=== PATIENT | male | born 1965 | race Caucasian/White ===

== ENCOUNTER 2017-10-24 11:35 | Observation (INO) ==
--- NOTE | 2017-10-24 12:42 | ED ---
HPI General Chief Complaint: Chest Pain Stated Complaint: High bp Time Seen by Provider: 10/24/17 12:00 Source: patient Mode of arrival: ambulatory Limitations: no limitations History of Present Illness HPI narrative: Patient is a 51-year-old male presenting to emerge from for evaluation of chest pain. Patient states that he was in physical therapy at the [facility] today and had a 3 second episode of left anterior chest wall pain. Patient states it was sharp and pressure-like in nature. He was having his blood pressure taken when the pain started. Patient states he had the same pain yesterday, also occurred at rest pain was more intense at that time and lasted for approximately 10 seconds. No alleviating factors, no exacerbating factors, symptom onset was sudden, symptoms resolve on their own. Patient denies any nausea, vomiting, diaphoresis, shortness of breath, headache. Past medical history is significant for hypertension, type 2 diabetes, neuropathy, stage III chronic kidney disease, coronary artery disease with stent placement 2 years ago, glaucoma, cataracts, depression/anxiety, vertigo. Patient states he cannot have IV contrast due to his kidney disease but denies any allergic reaction to iodine or shellfish. Patient is currently pain-free. MD complaint: chest pain Complete Quality Measures for STEMI Alert Patients STEMI Alert: No Onset (ago): day(s) Duration: intermittent and now resolved Onset: during rest Pain location: left chest Severity: moderate Severity scale (1-10): 4 Quality: tightness and sharp Pain radiation: none Relieving factors: nothing Exacerbating factors: nothing Treatments prior to arrival chest pain: none Related Data Home Medications Medication Instructions Recorded Confirmed Unable to Obtain Home Meds 10/24/17 10/24/17 Allergies Allergy/AdvReac Type Severity Reaction Status Date / Time No Known Allergies Allergy Verified 10/24/17 12:27 Review of Systems ROS: all other systems reviewed are negative PMFSH History History Provided By: Patient Medical History Medical History Myocardial infarction (Acute) Anxiety (Chronic) CAD (coronary artery disease) (Chronic) CKD (chronic kidney disease) stage 3, GFR 30-59 ml/min (Chronic) Cataract (Chronic) Chronic neck and back pain (Chronic) Depression (Chronic) Glaucoma (Chronic) Hypertension (Chronic) Neuropathy (Chronic) Type 2 diabetes mellitus (Chronic) Vertigo (Chronic) Surgical History Surgical History History of coronary artery stent placement (Acute) Stented coronary artery (Acute) Social History Social History Substance History: No History of Abuse Second Hand Smoke Exposure: No Smoking Status: Unknown if ever smoked How Often Do You Have a Drink Containing Alcohol: Never Recent Travel in [facility] within the Last 8 Weeks: No Recent Out of Country Travel within the Last 8 Weeks: No Exam Narrative Exam Narrative: GENERAL: Overweight, well-developed, alert male. Presenting in no acute distress. SKIN: Focused skin assessment warm/dry. HEAD: Atraumatic. Normocephalic. EYES: Pupils equal and round. No scleral icterus. No injection or drainage. ENT: No nasal bleeding or discharge. Mucous membranes pink and moist. NECK: Trachea midline. No JVD. CARDIOVASCULAR: Regular rate and rhythm. No murmur appreciated. RESPIRATORY: No accessory muscle use. Clear to auscultation. Breath sounds equal bilaterally. GASTROINTESTINAL: Abdomen soft, non-tender, nondistended. Hepatic and splenic margins not palpable. MUSCULOSKELETAL: No obvious deformities. No clubbing. No cyanosis. No edema. NEUROLOGICAL: Awake and alert. No obvious cranial nerve deficits. Motor grossly within normal limits. Normal speech. PSYCHIATRIC: Appropriate mood and affect; insight and judgment normal. Course Initial Documented Vital Signs Temperature 97.7 F 10/24/17 11:51 Pulse Rate 88 10/24/17 11:51 Respiratory Rate 18 10/24/17 11:51 Blood Pressure 195/88 H 10/24/17 11:51 Pulse Oximetry 97 10/24/17 11:51 Last Documented Vital Signs Temperature 97.7 F 10/24/17 11:51 Pulse Rate 74 10/24/17 13:45 Respiratory Rate 15 10/24/17 13:45 Blood Pressure 170/96 H 10/24/17 13:45 Pulse Oximetry 94 L 10/24/17 13:45 Medical Decision Making MAYRA Attestation MAYRA supervised visit: Yes Attestation: I, Dr. Dailey, have reviewed the advance practice practitioner's documentation and am in agreement, met with the patient face to face, made the diagnosis, and the medical decision making was done by me. *My assessment and Findings: Patient is a 51-year-old male with history of coronary artery disease, presents the emergency room for evaluation of chest pain. Patient reports that he had 2 episodes of chest pain today as well as yesterday, reports that symptoms only lasted for a few seconds and resolved on its own. Reports that today when he had his episode of chest pain, he was in rehab at the [facility] and was sent to the emergency room for evaluation. Patient reports that chest pain following a dull ache, no shortness of breath or diaphoresis with the symptoms. Patient is currently chest pain-free, first set of troponin is negative. Patient was given aspirin and admitted to chest pain unit. MDM Narrative Medical decision making narrative: Patient is a 51-year-old male presenting for evaluation of chest pain. Patient is hypertensive on arrival, labs and imaging ordered and pending. Patient is currently pain-free. Aspirin nitroglycerin ordered. Labs reviewed, BUN and creatinine elevated 16/04.04, patient has reported history of chronic kidney disease, stage III. Cardiac enzymes are negative 1 set. Blood pressure trended down after administration of Nitropaste patient's chest wall. Patient was also seen and evaluated by my attending physician. Patient will be placed in the chest pain center for further evaluation. Patient is currently resting comfortably, he is pain-free. Medical Screen Exam Complete: Yes Emergency Medical Condition: Yes Differential Diagnosis Differential Diagnosis: ACS versus [place] versus muscular skeletal pain versus anxiety versus metabolic abnormality versus arrhythmia versus other Medical Records Medical records reviewed: Yes I reviewed the patient's medical records. Lab Data Result diagrams: 10/24/17 13:00 10/24/17 13:00 Lab Results 10/24/17 10/24/17 10/24/17 Range/Units 13:00 13:00 13:00 WBC 7.1 (4.0-11.0) th/mm3 RBC 4.09 L (4.50-5.90) mil/mm3 Hgb 12.4 L (13.0-17.0) gm/dL Hct 37.8 L (39.0-51.0) % MCV 92.5 (80.0-100.0) fL MCH 30.3 (27.0-34.0) pg MCHC 32.8 (32.0-36.0) % RDW 14.3 (11.6-17.2) % Plt Count 195 (150-450) th/mm3 MPV 7.9 (7.0-11.0) fL Neut % (Auto) 61.3 (16.0-70.0) % Lymph % (Auto) 26.2 (9.0-44.0) % [place] % (Auto) 10.6 H (0.0-8.0) % Eos % (Auto) 1.6 (0.0-4.0) % Baso % (Auto) 0.3 (0.0-2.0) % Neut # (Auto) 4.3 (1.8-7.7) th/mm3 Lymph # (Auto) 1.9 (1.0-4.8) th/mm3 [place] # (Auto) 0.8 (0.0-0.9) th/mm3 Eos # (Auto) 0.1 (0.0-0.4) th/mm3 Baso # (Auto) 0.0 (0.0-0.2) th/mm3 WBC Differential . Differential Comment Auto diff final PT 10.4 (9.8-11.6) sec INR 1.0 Ratio APTT 25.9 (24.3-30.1) sec Sodium (136-145) meq/L Potassium (3.5-5.1) meq/L Chloride (98-107) meq/L Carbon Dioxide (21.0-32.0) meq/L Anion Gap (5-15) meq/L BUN (7-18) mg/dL Creatinine (0.60-1.30) mg/dL Estimated GFR (>89) mL/min Random Glucose (74-106) mg/dL Calcium (8.5-10.1) mg/dL Magnesium (1.5-2.5) mg/dL Total Bilirubin (0.2-1.0) mg/dL AST (15-37) U/L ALT (12-78) U/L Alkaline Phosphatase (45-117) U/L Total Creatine Kinase (39-308) U/L CK-MB (CK-2) (0.5-3.6) ng/mL CK-MB (CK-2) % (0.0-4.0) % Troponin I (0.02-0.05) ng/mL Total Protein (6.4-8.2) g/dL Albumin (3.4-5.0) g/dL Lipase 193 (73-393) U/L Urine Color (Yellw/Straw) Urine Clarity (Clear) Urine pH (5.0-8.5) Ur Specific [place] (1.002-1.035) Urine Protein (Neg-Trace) mg/dL Urine Glucose (UA) (Negative) mg/dL Urine Ketones (Negative) mg/dL Urine Occult Blood (Negative) Urine Nitrate (Negative) Urine Bilirubin (Negative) Urine Urobilinogen (Less than 2) mg/dL Ur Leukocyte Esterase (Negative) Urine RBC (0-3) /hpf Urine WBC (0-5) /hpf Ur Squamous Epith Cells (0-5) /hpf Urine Bacteria (None) /hpf Micro UA Comment Ur Microscopic Review Urine Culture Comments 10/24/17 10/24/17 Range/Units 13:00 13:00 WBC (4.0-11.0) th/mm3 RBC (4.50-5.90) mil/mm3 Hgb (13.0-17.0) gm/dL Hct (39.0-51.0) % MCV (80.0-100.0) fL MCH (27.0-34.0) pg MCHC (32.0-36.0) % RDW (11.6-17.2) % Plt Count (150-450) th/mm3 MPV (7.0-11.0) fL Neut % (Auto) (16.0-70.0) % Lymph % (Auto) (9.0-44.0) % [place] % (Auto) (0.0-8.0) % Eos % (Auto) (0.0-4.0) % Baso % (Auto) (0.0-2.0) % Neut # (Auto) (1.8-7.7) th/mm3 Lymph # (Auto) (1.0-4.8) th/mm3 [place] # (Auto) (0.0-0.9) th/mm3 Eos # (Auto) (0.0-0.4) th/mm3 Baso # (Auto) (0.0-0.2) th/mm3 WBC Differential Differential Comment PT (9.8-11.6) sec INR Ratio APTT (24.3-30.1) sec Sodium 141 (136-145) meq/L Potassium 4.8 (3.5-5.1) meq/L Chloride 104 (98-107) meq/L Carbon Dioxide 32.0 (21.0-32.0) meq/L Anion Gap 5 (5-15) meq/L BUN 28 H (7-18) mg/dL Creatinine 2.04 H (0.60-1.30) mg/dL Estimated GFR 34 L (>89) mL/min Random Glucose 158 H (74-106) mg/dL Calcium 8.4 L (8.5-10.1) mg/dL Magnesium 2.1 (1.5-2.5) mg/dL Total Bilirubin 0.3 (0.2-1.0) mg/dL AST 22 (15-37) U/L ALT 21 (12-78) U/L Alkaline Phosphatase 62 (45-117) U/L Total Creatine Kinase 309 H (39-308) U/L CK-MB (CK-2) 6.7 H (0.5-3.6) ng/mL CK-MB (CK-2) % 2.2 (0.0-4.0) % Troponin I Less than 0.02 L (0.02-0.05) ng/mL Total Protein 7.4 (6.4-8.2) g/dL Albumin 3.2 L (3.4-5.0) g/dL Lipase (73-393) U/L Urine Color Yellow (Yellw/Straw) Urine Clarity Clear (Clear) Urine pH 6.0 (5.0-8.5) Ur Specific [place] 1.015 (1.002-1.035) Urine Protein 30 H (Neg-Trace) mg/dL Urine Glucose (UA) 500 or greater (Negative) mg/dL Urine Ketones Trace H (Negative) mg/dL Urine Occult Blood Moderate H (Negative) Urine Nitrate Negative (Negative) Urine Bilirubin Negative (Negative) Urine Urobilinogen Less than 2 (Less than 2) mg/dL Ur Leukocyte Esterase Negative (Negative) Urine RBC 11 H (0-3) /hpf Urine WBC 1 (0-5) /hpf Ur Squamous Epith Cells <1 (0-5) /hpf Urine Bacteria Rare H (None) /hpf Micro UA Comment Culture not ind Ur Microscopic Review Not Reportable Urine Culture Comments Culture not ind Imaging Data Radiologist's impression: Chest X-Ray 10/24/17 12:29 CONCLUSION: Hypoinflation. No acute cardiopulmonary disease. Discharge Plan Discharge Disposition Patient Disposition: 30 Still Patient Discharge Condition Condition: Stable Discharge Details Diagnosis: Atypical chest pain Physicians Team ED Provider: [place] Dailey ED Midlevel Provider: Angelique Hardy Rxs /Orders / Referrals /Forms Prescriptions: No Action Unable to Obtain Home Meds RF: 0 Discharge Instructions Patient Printed Instructions: Chest Pain (ED) Discharge Interventions Interventions: Vital Signs Last Done: 10/24/17 13:45 Status ED Status: Admitted Observation Patient
[2017-10-24 13:33] LABS: Baso % (Auto) 0.3 % (0.0-2.0); Eos # (Auto) 0.1 th/mm3 (0.0-0.4); Eos % (Auto) 1.6 % (0.0-4.0); Hematocrit 37.8 % (39.0-51.0); Hemoglobin 12.4 gm/dL (13.0-17.0); Lymph # (Auto) 1.9 th/mm3 (1.0-4.8); Lymph % (Auto) 26.2 % (9.0-44.0); Mean Corpuscular HGB Conc 32.8 % (32.0-36.0); Mean Corpuscular Hemoglobin 30.3 pg (27.0-34.0); Mean Corpuscular Volume 92.5 fL (80.0-100.0); Mean Platelet Volume 7.9 fL (7.0-11.0); Mono # (Auto) 0.8 th/mm3 (0.0-0.9); Mono % (Auto) 10.6 % (0.0-8.0); Neut # (Auto) 4.3 th/mm3 (1.8-7.7); Neut % (Auto) 61.3 % (16.0-70.0); Platelet Count 195 th/mm3 (150-450); Red Blood Count 4.09 mil/mm3 (4.50-5.90); Red Cell Distribution Width 14.3 % (11.6-17.2); White Blood Count 7.1 th/mm3 (4.0-11.0)
--- NOTE | 2017-10-24 13:41 | XR ---
EXAM DATE: 10/24/2017 12:45 PM EDT AGE/SEX: 51 years / Male INDICATIONS: High blood pressure, sent by the dr. CLINICAL DATA: This is the patient's initial encounter. Patient reports that signs and symptoms have been present for 1 day and indicates a pain score of 0/10. MEDICAL/SURGICAL HISTORY: . high blood pressure. . coronary artery stent COMPARISON: No prior exams available for comparison. FINDINGS: The cardiac silhouette is enlarged in transverse diameter. The lungs are hypoinflated but clear. No e ffusions are identified. CONCLUSION: Hypoinflation. No acute cardiopulmonary disease. Electronically signed by: Michael Moreno MD 10/24/2017 1:40 PM EDT
[2017-10-24 13:43] LABS: Activated Partial Thrombo Time 25.9 sec (24.3-30.1); Prothrombin Time 10.4 sec (9.8-11.6)
[2017-10-24 13:56] LABS: Alanine Aminotransferase 21 U/L (12-78); Albumin 3.2 g/dL (3.4-5.0); Anion Gap 5 meq/L (5-15); Aspartate Aminotransferase 22 U/L (15-37); Blood Urea Nitrogen 28 mg/dL (7-18); Calcium 8.4 mg/dL (8.5-10.1); Chloride 104 meq/L (98-107); Glomerular Filtration Rate 34 mL/min (>89); Glucose,Random 158 mg/dL (74-106); Magnesium 2.1 mg/dL (1.5-2.5); Potassium 4.8 meq/L (3.5-5.1); Sodium 141 meq/L (136-145)
[2017-10-24 14:00] LABS: Alkaline Phosphatase 62 U/L (45-117); Creatine Kinase 309 U/L (39-308); Total Protein 7.4 g/dL (6.4-8.2)
[2017-10-24 14:12] LABS: Bacteria,Urine Rare /hpf; Bilirubin,Urine Negative (Negative); CKMB Percent 2.2 % (0.0-4.0); Clarity,Urine Clear (Clear); Color,Urine Yellow (Yellw/Straw); Creatine Kinase MB 6.7 ng/mL (0.5-3.6); Glucose,Urine (UA) 500 or Greater mg/dL (Negative); Leukocyte Esterase,Urine Negative (Negative); Nitrite,Urine Negative (Negative); Specific Gravity,Urine 1.015 (1.002-1.035); Squamous Epithelial Cell,Urine <1 /hpf (0-5)
[2017-10-24] MEDS ORDERED: Acetaminophen 500 MG Tablet PO PRN (16:26)
[2017-10-24] MEDS ORDERED: Dextrose 50% in Water 50 ML Vial IV.PUSH PRN (16:42)
--- NOTE | 2017-10-24 16:54 | P.HPCA ---
History of Present Illness Primary Care Physician: Ta Benjamin Chief Complaint: Chest pain History of Present Illness: This is a 51-year-old male with history of CAD with stent 2 2 years ago, hypertension however is taken off the Lopressor for about a year ago was secondary to hypotension, diabetes, neuropathy, vertigo, chronic kidney disease that presents to ED after being evaluated at the [facility] with complaint of chest discomfort he states he initially went to physical therapy for vertigo and while they are checking his blood pressure discovered that it was high. Was asked if he was having chest discomfort. Patient had then stated that he had an episode of chest discomfort yesterday while being sedentary lasting about 10 seconds and had another one while he is at the [facility] clinic lasting about 3 seconds. Describes as a left-sided sharp discomfort. States the discomfort yesterday was actually tender to touch but not today. Denies being short of breath, nauseous, diaphoretic. States is not similar to symptoms that led to his stent 2 years ago. States at that point his main issue was being extremely short of breath which was not the case today. Currently denies discomfort. Denies recent illness. Denies fevers or chills. Asking further about his blood pressure. Apparently about a year ago he had fallen after becoming dizzy and was found to be hypotensive. He was taken off Lopressor and added MIODRINE. With further discussion, patient really does not drink much water. His symptoms likely related to dehydration. States he still really does not drink that much. He has been having a salty diet as of lately. Patient is a lifetime non-smoker. Denies family history of CAD. - Diagnosis (1) Chest pain (2) History of coronary artery disease (3) History of heart artery stent (4) Hypertension (5) Hyperlipidemia (6) Diabetes (7) Chronic kidney disease (8) Neuropathy Review of Systems General: Patient denies fevers, chills, and recent travel. HEENT: Patient denies headache, sore throat, difficulty swallowing. Cardiovascular: Has the chest discomfort as mentioned above. Denies sensation of heart beating rapidly or irregularly. No syncope. Denies diaphoresis. Respiratory: Denies shortness of breath or inspirational chest discomfort. Denies coughing wheezing or hemoptysis. GI: Patient denies nausea, vomiting, diarrhea, abdominal pain, bloody stools. Musculoskeletal: Patient denies joint pain or edema. Denies calf pain or edema. Neurovascular: Patient denies numbness, tingling, weakness in extremities. Denies headache. Endocrine: Denies polyuria and polydipsia. Hematologic: Denies easy bruising. Skin: Denies rash or itching. PMFSH - History History Provided By: Patient - Medical History Medical History: Medical History (Last Updated 10/24/17 @ 13:38 by Blanca Lombardi RN) Myocardial infarction Anxiety CAD (coronary artery disease) CKD (chronic kidney disease) stage 3, GFR 30-59 ml/min Cataract Chronic neck and back pain Depression Glaucoma Hypertension Neuropathy Type 2 diabetes mellitus Vertigo - Surgical History Surgical History: Surgical History (Last Updated 10/24/17 @ 13:38 by Blanca Lombardi RN) History of coronary artery stent placement Stented coronary artery - Tobacco History Second Hand Smoke Exposure: No Tobacco Use In Past 30 Days: No Smoking Status: Unknown if ever smoked - Alcohol History How Often Do You Have a Drink Containing Alcohol: Never - Substance Use History Substance History: No History of Abuse - Travel History Recent Travel in the [place] Within the Last 8 Weeks: No Recent Travel Out of the Country Within the Last 8 Weeks: No - Immunization History Tetanus Immunization: <5 Years Hx Influenza Vaccine This Season: No Medications and Allergies Active Medications: Active Medications Acetaminophen (Tylenol) 500 mg PO Q6H PRN PRN Reason: pain scale 1-5 Hydrocodone Bitart/Acetaminophen ([place] 7.5/325) 1 tab PO Q6H PRN PRN Reason: pain scale 6-10 Albuterol (Duoneb Neb (Prn)) 1 ampul NEB Q4HR NEB PRN PRN Reason: SHORTNESS OF BREATH/WHEEZING Amlodipine Besylate (Norvasc) 2.5 mg PO DAILY [facility] Atorvastatin Calcium (Lipitor) 10 mg PO DAILY [facility] Clonidine HCl (Catapres) 0.1 mg PO Q6H PRN PRN Reason: SBP >165 OR DBP > 110 Clopidogrel Bisulfate (Plavix) 75 mg PO DAILY [facility] Dextrose (D50w Vial) 50 ml IV.PUSH UNSCH PRN PRN Reason: PER HYPOGLYCEMIA PROTOCOL Divalproex Sodium (Depakote Er) 1,000 mg PO DAILY [facility] Escitalopram Oxalate (Lexapro) 10 mg PO DAILY [facility] Finasteride (Proscar) 5 mg PO DAILY [facility] Glucagon (Glucagon Inj) 1 mg OTHER UNSCH PRN PRN Reason: for Hypoglycemia Protocol Insulin Human Regular (Novolin R Correctional Sugar Inj) 0 units SQ ACHS [facility]; Protocol Non-Formulary Medication (Ferrous Sulfate [Ferrous Sulfate]) 324 mg PO BID [facility] Pantoprazole Sodium (Protonix) 40 mg PO DAILY [facility] Sodium Chloride (Ns Flush) 2 ml IV.FLUSH BID [facility] Sodium Chloride (Ns Flush) 2 ml IV.FLUSH UNSCH PRN PRN Reason: FLUSH AFTER USING IV ACCESS Allergies Allergy/AdvReac Type Severity Reaction Status Date / Time No Known Allergies Allergy Verified 10/24/17 12:27 Home Medications Medication Instructions Recorded Confirmed Type Novolog Flexpen U-100 Insulin SUB-Q 10/24/17 History atorvastatin 10 mg PO DAILY 10/24/17 10/24/17 History carboxymethylcellulose sodium QID 10/24/17 History clopidogrel 75 mg PO DAILY 10/24/17 10/24/17 History divalproex 1,000 mg PO DAILY 10/24/17 10/24/17 History escitalopram oxalate 10 mg PO DAILY 10/24/17 10/24/17 History ferrous sulfate 324 mg PO BID 10/24/17 10/24/17 History finasteride 5 mg PO DAILY 10/24/17 10/24/17 History insulin glargine [Lantus U-100 50 unit SUB-Q DAILY 10/24/17 10/24/17 History Insulin] ketorolac 1 drp OPHTHALMIC (EYE) Q6H 10/24/17 10/24/17 History latanoprost 1 drp OPHTHALMIC (EYE) QPM 10/24/17 10/24/17 History pantoprazole 40 mg PO DAILY 10/24/17 10/24/17 History pantoprazole 40 mg PO DAILY 10/24/17 10/24/17 History sildenafil 25 mg PO DAILY 10/24/17 10/24/17 History Exam Vital signs: Vital Signs 10/24/17 11:51 10/24/17 12:30 10/24/17 12:58 Temperature 97.7 F Pulse Rate 88 80 Respiratory Rate 18 16 Blood Pressure 195/88 H 195/107 H Pulse Oximetry 97 96 97 10/24/17 13:45 Temperature Pulse Rate 74 Respiratory Rate 15 Blood Pressure 170/96 H Pulse Oximetry 94 L Intake & Output 10/23/17 10/24/17 10/24/17 18:59 06:59 18:59 Weight 81.193 kg Narrative: GENERAL: This is a well-nourished, well-developed patient, in no apparent distress. Patient speaks in clear complete sentences. Patient is pleasant. HEENT: Head is atraumatic and normocephalic. Neck is supple without lymphadenopathy and trachea is midline. No JVD or carotid bruits. CARDIOVASCULAR: Regular rate and rhythm without murmurs, gallops, or rubs. RESPIRATORY: Clear to auscultation. Breath sounds equal bilaterally. No wheezes , rales, or rhonchi. Chest wall is nontender. No use of accessory muscles. GASTROINTESTINAL: Abdomen is nontender, nondistended. Abdomen soft. No obvious pulsatile mass or bruit. No CVA tenderness. Strong femoral pulses bilaterally. Normal bowel sounds in all quadrants. MUSCULOSKELETAL: Patient is moving upper and lower extremities freely. No calf tenderness or edema, no Homans sign. Strong pulses in upper and lower extremities. NEUROLOGICAL: Patient is alert and oriented. Cranial nerves 2-12 are grossly intact. No focal deficits and speech is clear. SKIN: No rash and turgor is normal. Results 10/24/17 13:00 10/24/17 13:00 Cardiac Enzymes 10/24/17 Range/Units 13:00 AST 22 (15-37) U/L CK-MB (CK-2) 6.7 H (0.5-3.6) ng/mL Troponin I Less than 0.02 L (0.02-0.05) ng/mL Coagulation 10/24/17 Range/Units 13:00 PT 10.4 (9.8-11.6) sec APTT 25.9 (24.3-30.1) sec CBC 10/24/17 Range/Units 13:00 WBC 7.1 (4.0-11.0) th/mm3 RBC 4.09 L (4.50-5.90) mil/mm3 Hgb 12.4 L (13.0-17.0) gm/dL Hct 37.8 L (39.0-51.0) % Plt Count 195 (150-450) th/mm3 Neut # (Auto) 4.3 (1.8-7.7) th/mm3 Lymph # (Auto) 1.9 (1.0-4.8) th/mm3 Becker # (Auto) 0.8 (0.0-0.9) th/mm3 Eos # (Auto) 0.1 (0.0-0.4) th/mm3 Baso # (Auto) 0.0 (0.0-0.2) th/mm3 Comprehensive Metabolic Panel 10/24/17 Range/Units 13:00 Sodium 141 (136-145) meq/L Potassium 4.8 (3.5-5.1) meq/L Chloride 104 (98-107) meq/L Carbon Dioxide 32.0 (21.0-32.0) meq/L BUN 28 H (7-18) mg/dL Creatinine 2.04 H (0.60-1.30) mg/dL Calcium 8.4 L (8.5-10.1) mg/dL AST 22 (15-37) U/L ALT 21 (12-78) U/L Alkaline Phosphatase 62 (45-117) U/L Total Protein 7.4 (6.4-8.2) g/dL Albumin 3.2 L (3.4-5.0) g/dL Intake and Output 10/24/17 10/24/17 10/24/17 06:59 14:59 22:59 Other: Weight 81.193 kg Patient Weight 10/25/17 06:59 Weight 81.193 kg EKG interpretations - EKG EKG shows: sinus rhythm (Initial EKG is sinus rhythm without significant ST segment depressions or elevations.) Caprini VTE Risk Assessment Caprini VTE Risk Assessment: No/Low Risk (score <= 1) Caprini Risk Assessment Model: Point Value = 1 Point Value = 2 Point Value = 3 Point Value = 5 Age 41-60 Minor surgery BMI > 25 kg/m2 Swollen legs Varicose veins or History of unexplained or recurrent spontaneous Oral contraceptives or hormone replacement Sepsis (< 1 month) Serious lung disease, including pneumonia (< 1 month) Abnormal pulmonary function Acute myocardial infarction Congestive heart failure (< 1 month) History of inflammatory bowel disease Medical patient at bed rest Age 61-74 Arthroscopic surgery Major open surgery (> 45 min) Laparoscopic surgery (> 45 min) Malignancy Confined to bed (> 72 hours) Immobilizing plaster cast Central venous access Age >= 75 History of VTE Family history of VTE Factor V Leiden Prothrombin [id number] Lupus anticoagulant Anticardiolipin antibodies Elevated serum homocysteine Heparin-induced thrombocytopenia Other congenital or acquired thrombophilia Stroke (< 1 month) Elective arthroplasty Hip, pelvis, or leg fracture Acute spinal cord injury (< 1 month) Prophylaxis Regimen: Total Risk Factor Score Risk Level Prophylaxis Regimen 0-1 Low Early ambulation 2 Moderate Order ONE of the following: *Sequential Compression Device (SCD) *Heparin 5000 units SQ BID 3-4 Higher Order ONE of the following medications: *Heparin 5000 units SQ TID *Enoxaparin/Lovenox 40 mg SQ daily (WT < 150 kg, CrCl > 30 mL/min) *Enoxaparin/Lovenox 30 mg SQ daily (WT < 150 kg, CrCl > 10-29 mL/min) *Enoxaparin/Lovenox 30 mg SQ BID (WT < 150 kg, CrCl > 30 mL/min) AND/OR *Sequential Compression Device (SCD) 5 or more Highest Order ONE of the following medications: *Heparin 5000 units SQ TID (Preferred with Epidurals) *Enoxaparin/Lovenox 40 mg SQ daily (WT < 150 kg, CrCl > 30 mL/min) *Enoxaparin/Lovenox 30 mg SQ daily (WT < 150 kg, CrCl > 10-29 mL/min) *Enoxaparin/Lovenox 30 mg SQ BID (WT < 150 kg, CrCl > 30 mL/min) AND *Sequential Compression Device (SCD) Assessment and Plan - Assessment (1) Chest pain Code(s): R07.9 - Chest pain, unspecified Status: Acute (2) History of coronary artery disease Code(s): Z86.79 - Personal history of other diseases of the circulatory system Status: Acute (3) History of heart artery stent Code(s): Z95.5 - Presence of coronary angioplasty implant and graft Status: Acute (4) Hypertension Code(s): I10 - Essential (primary) hypertension Status: Acute (5) Hyperlipidemia Code(s): E78.5 - Hyperlipidemia, unspecified Status: Acute (6) Diabetes Code(s): E11.9 - Type 2 diabetes mellitus without complications Status: Acute (7) Chronic kidney disease Code(s): N18.9 - Chronic kidney disease, unspecified Status: Acute (8) Neuropathy Code(s): G62.9 - Polyneuropathy, unspecified Status: Acute - Plan * Chest pain: Patient will continue to have serial cardiac enzymes and EKGs for ruling out purposes. He has been seen by Dr. Felipe of cardiology in the chest pain center. He will undergo a Lexiscan in the morning if he rules out. Patient would be discharged home if the stress test is nonischemic with instructions to follow-up with his underwriting service representative, PCP, and return to ED for interval issues. The patient's medication list still has not been completely updated. This will be continued to be renewed as listed is completed. * History of CAD with stent placement: This will be reassessed with stress testing. He needs to continue medications. Follow-up with his underwriting service representative. * Diabetes: Sliding scale insulin coverage while in chest pain center. Resume medication at discharge. * Hypertension: We will start low-dose amlodipine. He should decrease MIODRINE by half and then try to wean off completely with his primary care doctor. Also advised of the importance of getting appropriate fluid intake and watching his salt intake. * Chronic kidney disease: Continue follow-up with his physician. * Hyperlipidemia: Continue medication. Patient is stable at this time. He is agreeable to this plan.
[2017-10-24 17:40] LABS: Creatine Kinase 247 U/L (39-308)
[2017-10-24] MEDS: Insulin NovoLIN Regular Correctional Sugar Inj SQ SCH ×2 (18:07→23:19)
[2017-10-24 20:58] LABS: Creatine Kinase 223 U/L (39-308)
[2017-10-24] MEDS: Ferrous Sulfate 325 MG Tablet PO SCH (23:17)
--- NOTE | 2017-10-25 08:22 | P.PNCA ---
Subjective Interval history: No further chest pain. Slept well overnight. Physical Exam Vital signs: Vital Signs 10/24/17 11:51 10/24/17 12:30 10/24/17 12:58 Temperature 97.7 F Pulse Rate 88 80 Respiratory Rate 18 16 Blood Pressure 195/88 H 195/107 H Pulse Oximetry 97 96 97 10/24/17 13:45 10/24/17 19:46 10/24/17 20:00 Temperature 97.8 F Pulse Rate 74 72 79 Respiratory Rate 15 18 Blood Pressure 170/96 H 172/88 H Pulse Oximetry 94 L 96 10/24/17 23:54 10/25/17 01:10 10/25/17 03:33 Temperature 97.6 F 97.7 F Pulse Rate 72 72 69 Respiratory Rate 19 21 Blood Pressure 189/105 H 128/79 138/74 Pulse Oximetry 96 92 L 96 10/25/17 07:39 Temperature Pulse Rate Respiratory Rate Blood Pressure Pulse Oximetry 99 Intake & Output 10/24/17 10/25/17 10/25/17 18:59 06:59 18:59 Weight 79.6 kg Other: # Voids 1 Date of Last Bowel Movement 10/24/17 Weight On Admission 79.6 kg Assessment and Plan - Assessment (1) Chest pain Code(s): R07.9 - Chest pain, unspecified Status: Acute Plan: Monitor on telemetry overnight. ACS ruled out with 3 sets of EKGs and cardiac enzymes. Proceed with Lexiscan as previously planned by Dr. Gila Felipe. Patient agreeable to plan of care. If unremarkable, plans to discharge home with follow-up with primary care provider and to notify [place] political geographer of recent admission and cardiac testing. (2) History of coronary artery disease Code(s): Z86.79 - Personal history of other diseases of the circulatory system Status: Acute Plan: Continue Plavix and atorvastatin. Follow-up with political geographer and PCP. (3) History of heart artery stent Code(s): Z95.5 - Presence of coronary angioplasty implant and graft Status: Acute Plan: Continue Plavix. (4) Hyperlipidemia Code(s): E78.5 - Hyperlipidemia, unspecified Status: Acute Plan: Continue atorvastatin. (5) Diabetes Code(s): E11.9 - Type 2 diabetes mellitus without complications Status: Suspected Plan: SSI coverage. Plan to continue home insulin and anti-hyperglycemics upon discharge. (6) Chronic kidney disease Code(s): N18.9 - Chronic kidney disease, unspecified Status: Acute (7) Neuropathy Code(s): G62.9 - Polyneuropathy, unspecified Status: Acute - Plan * Chest pain: Patient will continue to have serial cardiac enzymes and EKGs for ruling out purposes. He has been seen by Dr. Felipe of cardiology in the chest pain center. He will undergo a Lexiscan in the morning if he rules out. Patient would be discharged home if the stress test is nonischemic with instructions to follow-up with his political geographer, PCP, and return to ED for interval issues. The patient's medication list still has not been completely updated. This will be continued to be renewed as listed is completed. * History of CAD with stent placement: This will be reassessed with stress testing. He needs to continue medications. Follow-up with his political geographer. * Diabetes: Sliding scale insulin coverage while in chest pain center. Resume medication at discharge. * Hypertension: We will start low-dose amlodipine. He should decrease MIODRINE by half and then try to wean off completely with his primary care doctor. Also advised of the importance of getting appropriate fluid intake and watching his salt intake. * Chronic kidney disease: Continue follow-up with his physician. * Hyperlipidemia: Continue medication. Patient is stable at this time. He is agreeable to this plan.
[2017-10-25] MEDS ORDERED: amLODIPine 5 MG Tablet PO SCH (09:00)
[2017-10-25] MEDS ORDERED: Escitalopram 10 MG Tablet PO SCH (09:00)
[2017-10-25] MEDS ORDERED: Divalproex 500 MG ER Tablet PO SCH (09:00)
[2017-10-25] MEDS ORDERED: Finasteride 5 MG Tablet PO SCH (09:00)
[2017-10-25] MEDS ORDERED: Regadenoson Inj 0.4 MG/5 ML Syringe IV.PUSH ONE (10:08)
--- NOTE | 2017-10-25 11:51 | NM ---
EXAM DATE: 10/25/2017 11:48 AM EDT AGE/SEX: 51 years / Male INDICATIONS:Angina. Coronary artery disease Midchest pain. CLINICAL DATA: This is the patient's initial encounter. Patient reports that signs and symptoms have been present for 3 days and indicates a pain score of 3/10. MEDICAL/SURGICAL HISTORY: Hypertension. Myocardial infarction. Diabetes mellitus type II. Cor onary artery stent. COMPARISON: No prior exams available for comparison. DOSE: 8.2 mCi Tc 99m Myoview at rest 25.6 mCi [id number] at stress 0.4 mg Lexiscan STRESS SYMPTOMS: None. EJECTION FRACTION: >70 % TECHNIQUE: The patient underwent pharmacologic stress with infusion of prescribed dose. Continuous ECG tracing was monitored during stress. Gated SPECT imaging was performed after stress and conventi onal SPECT imaging was performed at rest. The examination was performed on a SPECT/CT scanner, both attenuation and non-corrected datasets were reviewed. FINDINGS: Distribution: The maximum perfused segment at stress is in the anterolateral wall. Perfusion Study: The pattern of perfusion at stress is within normal limits. Gated Study: There are intact wall motion and wall thickening without hypokinetic or dyskinetic segm ents. The ejection fraction is calculated at >70%. RISK CATEGORY: Low (<1% Annual Motality Rate) CONCLUSION: 1. Negative examination. Electronically signed by: Danny David MD 10/25/2017 11:50 AM EDT
[2017-10-25] MEDS: Insulin NovoLIN Regular Correctional Sugar Inj SQ SCH (12:04)
[2017-10-25] MEDS: Ferrous Sulfate 325 MG Tablet PO SCH (12:28)
--- NOTE | 2017-10-25 12:33 | ECG ---
Date Performed: 10/24/2017 Time Performed: 16:53:14 PTAGE: 51 years EKG: Sinus rhythm MODERATE T-WAVE ABNORMALITY, CONSIDER ANTEROLATERAL ISCHEMIA ABNORMAL ECG T-wave inversion is more p rominent than prior tracing clinical correlation recommended PREVIOUS TRACING : 10/24/2017 13.20 DOCTOR: Boone Cox Interpretating Date/Time 10/25/2017 12:31:27
--- NOTE | 2017-10-25 12:34 | ECG ---
Date Performed: 10/24/2017 Time Performed: 19:47:42 PTAGE: 51 years EKG: Sinus rhythm POSSIBLE RIGHT VENTRICULAR CONDUCTION DELAY MODERATE T-WAVE ABNORMALITY, CONSIDER LATERAL ISCHEMIA M ODERATE T-WAVE ABNORMALITY, CONSIDER INFERIOR ISCHEMIA ABNORMAL ECG Slight improvement of T wave but no significant change PREVIOUS TRACING : 10/24/2017 16.53 DOCTOR: Boone Cox Interpretating Date/Time 10/25/2017 12:33:32
--- NOTE | 2017-10-25 12:34 | ECG ---
Date Performed: 10/24/2017 Time Performed: 13:20:34 PTAGE: 51 years EKG: Sinus rhythm POSSIBLE RIGHT VENTRICULAR CONDUCTION DELAY MODERATE T-WAVE ABNORMALITY, CONSIDER LATERAL ISCHEMIA A BNORMAL ECG NO PREVIOUS TRACING DOCTOR: Boone Cox Interpretating Date/Time 10/25/2017 12:32:51
--- NOTE | 2017-10-25 12:36 | TR ---
Date Performed: 10/25/2017 Time Performed: 10:53:46 DOCTOR: Boone Cox DRUG LIST: CLINICAL HISTORY: REASON FOR TEST: REASON FOR ENDING: OBSERVATION: CONCLUSION: Lexiscan stress test was performed under standard four minute protocol. Radionuclide was injected one minute prior to ending the test. No electrocardiographic abormalities were present to suggest ischemia. Nuclear imaging and interpretation are pending. COMMENTS:
== END 2017-10-25 14:56 | disposition home or self-care (01) ==
LOC: NEPC 11:35 → NEDA 11:35 → NEPGCP 16:43
PROVIDERS: ADMIT Internal Medicine Interventional Cardiology; ATTEND Internal Medicine Interventional Cardiology